=== PATIENT | female | born 1995 | race African-American/Black ===

== ENCOUNTER 2018-04-27 16:03 | Emergency (ER) | payer OTHER ==
[~2018-04-27] VITALS: Ht 160 cm; Wt 77.1 kg
[2018-04-27] MEDS ORDERED: CETIRIZINE HCL10 MG PO (19:59)
[2018-04-27] MEDS ORDERED: TRIAMCINOLONE A80 GM TOP (19:59)
[2018-04-27] MEDS ORDERED: MEDROLPACK PO (19:59)
== END 2018-04-27 20:16 | disposition home or self-care (01) ==
LOC: ER 16:03
DX: L20.89 Other atopic dermatitis (principal)